=== PATIENT | male | born 1995 ===

== ENCOUNTER 2023-05-17 09:10 | Outpatient (REF) | payer OTHER, SELFPAY | END 2023-05-17 09:11 | disposition home or self-care (01) | LOC: HO.HHCLNP 09:10 | PROVIDERS: Visit Provider Emergency Medicine | DX: L24.7 Irritant contact dermatitis due to plants, except food (principal) | CPT/HCPCS: 87070; 87205 ==

== ENCOUNTER 2024-07-08 14:41 | Outpatient (REF) | payer OTHER, SELFPAY | END 2024-07-08 14:42 | disposition home or self-care (01) | LOC: HO.LNP 14:41 | PROVIDERS: Visit Provider Family Medicine | DX: L03.311 Cellulitis of abdominal wall (principal) | CPT/HCPCS: 87070; 87077; 87186; 87205 ==